=== PATIENT | female | born 1975 | race Caucasian/White ===

== ENCOUNTER 2024-03-25 11:58 | Emergency (ER) | payer MEDICAID ==
[~2024-03-25] VITALS: Ht 167.6 cm; Wt 61.7 kg
[2024-03-25] MEDS ORDERED: IVER117L TP (13:18)
[2024-03-25] MEDS ORDERED: PERM60CR4 TP (13:18)
[2024-03-25 13:33] VITALS: BP 130/70; TEMP 97; O2SAT 99
== END 2024-03-25 13:34 | disposition home or self-care (01) ==
LOC: ER 11:59
DX: B85.0 Pediculosis due to Pediculus humanus capitis (principal); B85.1 Pediculosis due to Pediculus humanus corporis; Z88.5 Allergy status to narcotic agent
CPT/HCPCS: A4606; A4663